=== PATIENT | female | born 1945 | race Caucasian/White ===

== ENCOUNTER 2019-01-22 19:11 | Emergency (ER) | payer MEDICARE, MEDICAID ==
--- NOTE | 2019-01-22 20:47 | RAD ---
Exam: XR Knee Rt 4 View STANDARD HISTORY: Right knee pain after a fall one day ago. COMPARISON: 02/19/2015 FINDINGS: Again noted is tricompartment osteophytosis. There is no joint space narrowing identified. A small amount of fluid is seen in the suprapatellar location likely physiologic in origin. No acute fracture, dislocation, or other acute osseous abnormality is identified. IMPRESSION: 1. Osteoarthritis right knee similar to prior exam. 2. No acute osseous abnormality is identified.
[2019-01-22 20:55] LABS: Mean Corpuscular HGB CONC 34.2 g/dL (32.0-36.0); Mean Corpuscular Hemoglobin 31.3 pg (27.0-31.0); Mean Corpuscular Volume 91.6 fL (78.0-98.0); Mean Platelet Volume 9.4 fL (7.4-10.4); Platelet Count 181 thou/uL (130-400); RBC Distribution Width 11.4 % (11.5-14.5); Red Blood Cell (RBC) Count 4.79 mill/uL (4.20-5.40); White Blood Cell (WBC) Count 5.6 thou/uL (4.8-10.8)
[2019-01-22 21:04] LABS: Band 2 % (5-11); Eosinophils 1 % (0-10); Lymphocytes 51 % (21-51); MDiff Complete? YES; Monocytes 10 % (0-10); Neutrophil 35 % (42-75); Platelet Morphology Comment Appears Adequate; RBC Morphology Normal
[2019-01-22 21:08] LABS: ALT (SGPT) 15 U/L (8-55); AST (SGOT) 24 U/L (5-34); Alkaline Phosphatase 62 U/L (40-150); Anion Gap 12 mmol/L (10-20); BUN (Urea Nitrogen) 18 mg/dL (9.8-20.1); Bilirubin, Total 0.5 mg/dL (0.2-1.2); CK (CPK) 38 U/L (29-168); Calc. Creatinine Clearance 0 mL/min (70-130); Calcium 9.9 mg/dL (7.8-10.44); Carbon Dioxide 29 mmol/L (23-31); Chloride 103 mmol/L (98-107); Estimated GFR-MDRD 48; Globulin 3.1 g/dL (2.4-3.5); Glucose 85 mg/dL (83-110); Lipase 47 U/L (8-78); Potassium 4.2 mmol/L (3.5-5.1); Protein, Total 7.1 g/dL (6.0-8.3); Sodium 140 mmol/L (136-145)
== END 2019-01-22 21:49 | disposition home or self-care (01) ==
LOC: SCSER 19:11
DX: S80.01XA Contusion of right knee, initial encounter (principal); I10 Essential (primary) hypertension; Z79.899 Other long term (current) drug therapy; E78.5 Hyperlipidemia, unspecified; X58.XXXA Exposure to other specified factors, initial encounter
CPT/HCPCS: 80053; 82550; 83690; 84484; 85025; 93005

== ENCOUNTER 2020-09-15 11:33 | Inpatient (IN) | payer MEDICARE, MEDICAID ==
[~2020-09-15 11:33] MED LIST: Iopamidol-370 76% 500 ML 1 ML ONE
[2020-09-15] MEDS ORDERED: Lorazepam 2 MG/ML VIAL ONE ×3 (12:04→17:02)
[2020-09-15 12:07] LABS: Hemoglobin 14.3 g/dL (12.0-16.0); Mean Corpuscular HGB CONC 33.4 g/dL (32.0-36.0); Mean Corpuscular Hemoglobin 34.3 pg (27.0-31.0); Mean Platelet Volume 7.5 fL (7.4-10.4); Platelet Count 203 thou/uL (130-400); RBC Distribution Width 11.5 % (11.5-14.5); Red Blood Cell (RBC) Count 4.17 mill/uL (4.20-5.40); White Blood Cell (WBC) Count 8.4 thou/uL (4.8-10.8)
[2020-09-15 12:25] LABS: Band 1 % (5-11); Lymphocytes 56 % (21-51); MDiff Complete? YES; Monocytes 3 % (0-10); Neutrophil 34 % (42-75); Platelet Morphology Comment Appears Adequate; RBC Morphology Normal; Reactive Lymphocytes 6 % (0-10)
[2020-09-15 13:00] LABS: ALT (SGPT) 14 U/L (8-55); AST (SGOT) 41 U/L (5-34); Albumin 3.7 g/dL (3.4-4.8); Alkaline Phosphatase 65 U/L (40-110); Anion Gap 18 mmol/L (10-20); BUN (Urea Nitrogen) 20 mg/dL (9.8-20.1); Bilirubin, Total 0.4 mg/dL (0.2-1.2); CK (CPK) 27 U/L (29-168); Calc. Creatinine Clearance 0 mL/min (70-130); Calcium 9.9 mg/dL (7.8-10.44); Carbon Dioxide 26 mmol/L (23-31); Chloride 103 mmol/L (98-107); Globulin 3.6 g/dL (2.4-3.5); Glucose 94 mg/dL (83-110); Potassium 4.6 mmol/L (3.5-5.1); Protein, Total 7.3 g/dL (5.8-8.1); Sodium 142 mmol/L (136-145)
[2020-09-15 17:36] LABS: Bacteria/HPF None Seen HPF (None Seen); Bilirubin Negative (Negative); Blood, Urine Negative (Negative); Clarity Clear (Clear); Glucose, Urine (Dipstick) Normal (Negative); Ketone, Urine Negative (Negative); Leukocyte 25 Leu/uL (Negative); Nitrite Negative (Negative); Protein, Urine (Dipstick) Negative (Neg-Trace); RBC/HPF 0-3 HPF (0-3); Specific Gravity, Urine 1.014 (1.002-1.036); Squamous Epithelial None Seen HPF (0-3); Urobilinogen Normal mg/dL (Less than 2)
[2020-09-15 18:09] LABS: Amphetamine Not Detected (NotDetected); Barbiturates Screen Not Detected (NotDetected); Benzodiazepine Screen Not Detected (NotDetected); Cocaine Metabolite Screen Not Detected (NotDetected); Medtox Control Line Valid? VALID (VALID); Medtox Reader # READER 1; Methadone Not Detected (NotDetected); Methamphetamine Not Detected (NotDetected); Opiate Screen Not Detected (NotDetected); Oxycodone Screen Not Detected (NotDetected); Phencyclidine (PCP) Not Detected (NotDetected); THC/Cannabinoid Screen Not Detected (NotDetected); Tricyclic Screen Not Detected (NotDetected)
[2020-09-15 18:24] LABS: Acetaminophen Less than 6.0 mcg/mL (10.0-30.0); Alcohol Less than 10 mg/dL (Less than 10); Magnesium 1.6 mg/dL (1.6-2.6); Salicylate Less than 8.0 mg/dL (15.0-30.0)
[2020-09-15 18:26] LABS: Troponin I 0.031 ng/mL (< 0.028)
[2020-09-15] MEDS ORDERED: Acetaminophen 500 MG TAB ONE (18:33)
[2020-09-15] MEDS ORDERED: Ondansetron ODT 4 MG TAB PO PRN (19:19)
[2020-09-15] MEDS ORDERED: Ondansetron PF 4 MG/2 ML Vial IVP PRN (19:30)
[2020-09-15] MEDS ORDERED: Ondansetron ODT 4 MG TAB SL PRN (19:30)
[2020-09-15] MEDS ORDERED: Acetaminophen 325 MG TAB PO PRN (19:30)
[2020-09-15 19:40] VITALS: BMI 34.3
[2020-09-15] MEDS ORDERED: cefTRIAXone\\ROCEPHIN 1 GM in Sodium Chloride 0.9% 100 ML IVPB SCH (20:00)
[2020-09-15] MEDS ORDERED: Atorvastatin Calcium 10 MG TAB PO SCH (21:00)
[2020-09-15] MEDS ORDERED: FLU VACC QS2020-21(65YR UP)/PF 240 MCG/0.7 ML SYRINGE IM ONE (21:00)
[2020-09-15] MEDS: Famotidine 20 MG TAB PO SCH (21:07)
[2020-09-15 21:30] LABS: Troponin I 0.027 ng/mL (< 0.028)
[2020-09-16] MEDS ORDERED: Magnesium 2 GM/50 ML 2 GM in Premix Bag 1 BAG IVPB SCH ×2 (00:30→14:30)
[2020-09-16 03:25] LABS: SARS-CoV-2 PCR by NAA Not Detected (NotDetected)
[2020-09-16 05:05] LABS: Anion Gap 9 mmol/L (10-20); BUN (Urea Nitrogen) 13 mg/dL (9.8-20.1); Calc. Creatinine Clearance 89 mL/min (70-130); Calcium 7.9 mg/dL (7.8-10.44); Carbon Dioxide 28 mmol/L (23-31); Chloride 107 mmol/L (98-107); Glucose 90 mg/dL (83-110); Potassium 3.7 mmol/L (3.5-5.1); Sodium 140 mmol/L (136-145)
[2020-09-16 05:20] LABS: Band 1 % (5-11); Hemoglobin 11.9 g/dL (12.0-16.0); Hypochromia SLIGHT = 6-15 cells (100X) (0-5/hpf); Lymphocytes 38 % (21-51); MDiff Complete? YES; Mean Corpuscular HGB CONC 33.1 g/dL (32.0-36.0); Mean Corpuscular Hemoglobin 33.6 pg (27.0-31.0); Mean Platelet Volume 7.2 fL (7.4-10.4); Monocytes 6 % (0-10); Neutrophil 40 % (42-75); Platelet Count 166 thou/uL (130-400); Platelet Morphology Comment Appears Adequate; RBC Distribution Width 11.7 % (11.5-14.5); Reactive Lymphocytes 15 % (0-10); Red Blood Cell (RBC) Count 3.55 mill/uL (4.20-5.40)
[2020-09-16] MEDS: Levothyroxine Sodium 25 MCG TAB PO SCH ×2 (06:57→06:58)
[2020-09-16] MEDS: Famotidine 20 MG TAB PO SCH ×2 (08:50→22:15)
[2020-09-16] MEDS: Acetaminophen 325 MG TAB PO PRN (08:54)
[2020-09-16] MEDS ORDERED: Aspirin 81 mg Enteric Coated Tablet PO SCH (09:00)
[2020-09-16] MEDS ORDERED: NIFEdipine XL 30 MG TAB PO SCH (09:00)
[2020-09-16] MEDS ORDERED: Diltiazem 125 MG in Sodium Chloride 0.9% 100 ML IVPB SCH (15:30)
[2020-09-16] MEDS: Atorvastatin Calcium 10 MG TAB PO SCH (22:15)
[2020-09-16] MEDS: Diltiazem HCl SR 60 mg Capsule PO SCH (22:15)
[2020-09-16] MEDS: Enoxaparin Sodium 80 MG/0.8 ML SYRINGE SC SCH (22:15)
[2020-09-17] MEDS: Levothyroxine Sodium 25 MCG TAB PO SCH ×2 (06:43→07:32)
[2020-09-17] MEDS: Enoxaparin Sodium 80 MG/0.8 ML SYRINGE SC SCH ×2 (08:50→20:04)
[2020-09-17] MEDS: Famotidine 20 MG TAB PO SCH ×2 (08:50→20:04)
[2020-09-17] MEDS: Aspirin 81 mg Enteric Coated Tablet PO SCH (08:51)
[2020-09-17] MEDS: Diltiazem HCl SR 60 mg Capsule PO SCH (08:51)
[2020-09-17] MEDS ORDERED: BIOFLAVONOID PO SCH (09:00)
[2020-09-17] MEDS ORDERED: [UNRECOGNIZED DRUG - OTHER] PO SCH (09:00)
[2020-09-17] MEDS ORDERED: ASCORBATE CALCIUM PO SCH (09:00)
[2020-09-17 09:09] LABS: Platelet Count 173 thou/uL (130-400)
[2020-09-17] MEDS: Acetaminophen 325 MG TAB PO PRN (17:22)
[2020-09-17] MEDS: Atorvastatin Calcium 10 MG TAB PO SCH (20:05)
[2020-09-17] MEDS: Diltiazem HCl SR 90 mg Capsule PO SCH (20:05)
[2020-09-18] MEDS: Levothyroxine Sodium 25 MCG TAB PO SCH (05:42)
[2020-09-18] MEDS: Aspirin 81 mg Enteric Coated Tablet PO SCH (08:26)
[2020-09-18] MEDS: Enoxaparin Sodium 80 MG/0.8 ML SYRINGE SC SCH (08:26)
[2020-09-18] MEDS: Diltiazem HCl SR 90 mg Capsule PO SCH (08:26)
[2020-09-18] MEDS: Famotidine 20 MG TAB PO SCH (08:26)
[2020-09-18] MEDS: Acetaminophen 325 MG TAB PO PRN (08:30)
[2020-09-18 11:11] VITALS: BP 153/68; TEMP 98.3
[2020-09-18 11:38] LABS: Anion Gap 12 mmol/L (10-20); BUN (Urea Nitrogen) 13 mg/dL (9.8-20.1); Calc. Creatinine Clearance 68 mL/min (70-130); Calcium 8.3 mg/dL (7.8-10.44); Carbon Dioxide 27 mmol/L (23-31); Chloride 105 mmol/L (98-107); Glucose 116 mg/dL (83-110); Magnesium 2.2 mg/dL (1.6-2.6); Potassium 4.2 mmol/L (3.5-5.1); Sodium 140 mmol/L (136-145)
[2020-09-18] MEDS ORDERED: Apixaban 5 MG TAB PO SCH (21:00)
== END 2020-09-18 14:26 | disposition home or self-care (01) | DRG 310 ==
LOC: ERS 11:33 → 2NO 17:30 → OBSVTOIN 09-16 14:34
PROVIDERS: ADMIT Internal Medicine; ATTEND Internal Medicine
DX: I48.92 Unspecified atrial flutter (principal); Z20.822 Contact with and (suspected) exposure to COVID-19; Z23 Encounter for immunization; F41.9 Anxiety disorder, unspecified; E78.5 Hyperlipidemia, unspecified; I10 Essential (primary) hypertension; E03.9 Hypothyroidism, unspecified; I45.19 Other right bundle-branch block; G80.9 Cerebral palsy, unspecified; G40.909 Epilepsy, unspecified, not intractable, without status epilepticus; F79 Unspecified intellectual disabilities; E78.00 Pure hypercholesterolemia, unspecified; Z88.2 Allergy status to sulfonamides; Z79.899 Other long term (current) drug therapy; Z90.710 Acquired absence of both cervix and uterus; Z90.49 Acquired absence of other specified parts of digestive tract
CPT/HCPCS: 36415; 51701; 70450; 71045; 71275; 80048; 80053; 80164; 80306; 80307; 81003; 81015; 82550; 83605; 83735; 84146; 84443; 84484; 85014; 85018; 85025; 85049; 85379; 87086; 87635; 93005; 93306; 95712; 95819; 95957; 96365; 96367; 96374; 96375; 96376; G0378; J0696; J1650; J2060; J3475; J3490; Q9967; U0003; U0005

== ENCOUNTER 2021-08-12 19:01 | Emergency (ER) | payer MEDICARE, MEDICAID ==
[2021-08-12 19:54] LABS: Hemoglobin 15.7 g/dL (12.0-16.0); Mean Corpuscular HGB CONC 34.6 g/dL (32.0-36.0); Mean Corpuscular Hemoglobin 34.3 pg (27.0-31.0); Mean Corpuscular Volume 99.1 fL (78.0-98.0); Mean Platelet Volume 8.7 fL (7.4-10.4); Platelet Count 178 thou/uL (130-400); RBC Distribution Width 10.9 % (11.5-14.5); Red Blood Cell (RBC) Count 4.57 mill/uL (4.20-5.40); White Blood Cell (WBC) Count 8.1 thou/uL (4.8-10.8)
[2021-08-12 20:18] LABS: Eosinophils 1 % (0-10); Lymphocytes 47 % (21-51); MDiff Complete? YES; Monocytes 10 % (0-10); Neutrophil 41 % (42-75); Platelet Morphology Comment Appears Adequate; RBC Morphology Normal; Reactive Lymphocytes 1 % (0-10)
[2021-08-12 20:24] LABS: ALT (SGPT) 11 U/L (8-55); AST (SGOT) 17 U/L (5-34); Albumin 4.1 g/dL (3.4-4.8); Alkaline Phosphatase 56 U/L (40-110); Anion Gap 14 mmol/L (10-20); BUN (Urea Nitrogen) 28 mg/dL (9.8-20.1); Bilirubin, Total 0.3 mg/dL (0.2-1.2); Calc. Creatinine Clearance 0 mL/min (70-130); Calcium 9.9 mg/dL (7.8-10.44); Carbon Dioxide 30 mmol/L (23-31); Chloride 101 mmol/L (98-107); Globulin 3.3 g/dL (2.4-3.5); Glucose 93 mg/dL (83-110); Lipase 80 U/L (8-78); Potassium 4.5 mmol/L (3.5-5.1); Protein, Total 7.4 g/dL (5.8-8.1); Sodium 140 mmol/L (136-145)
== END 2021-08-12 21:20 | disposition home or self-care (01) ==
LOC: ERS 19:01
DX: R07.9 Chest pain, unspecified (principal); R10.13 Epigastric pain; E78.5 Hyperlipidemia, unspecified; I10 Essential (primary) hypertension; E03.9 Hypothyroidism, unspecified; Z79.01 Long term (current) use of anticoagulants; Z79.899 Other long term (current) drug therapy
CPT/HCPCS: 71045; 80053; 83690; 84484; 85025; 93005; 94760

== ENCOUNTER 2024-01-12 23:25 | Emergency (ER) | payer MEDICARE, MEDICAID, OTHER ==
[2024-01-13] MEDS ORDERED: Ibuprofen 200 MG TAB ONE (00:47)
[2024-01-13] MEDS ORDERED: Acetaminophen 500 MG TAB ONE (00:47)
== END 2024-01-13 02:50 | disposition home or self-care (01) ==
LOC: ERS 23:25
DX: S09.90XA Unspecified injury of head, initial encounter (principal); I10 Essential (primary) hypertension; E03.9 Hypothyroidism, unspecified; W22.8XXA Striking against or struck by other objects, initial encounter; Z79.899 Other long term (current) drug therapy
CPT/HCPCS: 70450

== ENCOUNTER 2025-03-17 09:35 | Inpatient (IN) | payer MEDICARE, MEDICAID ==
[2025-03-17] MEDS ORDERED: Ondansetron PF 4 MG/2 ML Vial ONE (09:43)
[2025-03-17 10:12] LABS: #Basophils 0.05 10x3/uL (0.0-0.2); #Eosinophils 0.03 10x3/uL (0.0-0.7); #Monocytes 1.17 10x3/uL (0.11-0.59); #Neutrophils 6.66 10x3/uL (1.40-6.50); %Basophils 0.5 % (0.0-1.0); %Eosinophils 0.3 % (0.0-10.0); %Lymphocytes 26.9 % (21.0-51.0); %Monocytes 10.7 % (0.0-10.0); %Neutrophils 61.1 % (42.0-75.0); Hematocrit 40.9 % (36.0-47.0); Hemoglobin 13.7 g/dL (12.0-16.0); Mean Corpuscular Hemoglobin 32.0 pg (27.0-31.0); Mean Corpuscular Volume 95.6 fL (78.0-98.0); Platelet Count 173 10x3/uL (130-400); Red Blood Cell (RBC) Count 4.28 mill/uL (4.20-5.40); White Blood Cell (WBC) Count 10.89 10x3/uL (4.8-10.8)
[2025-03-17 10:27] LABS: ALT (SGPT) Less than 7 U/L (Less than 34); AST (SGOT) 16 U/L (11-34); Albumin 3.4 g/dL (3.1-4.5); Alkaline Phosphatase 42 U/L (40-110); Anion Gap 16 mmol/L (10-20); BUN (Urea Nitrogen) 21 mg/dL (9.8-20.1); Bilirubin, Total 0.8 mg/dL (0.3-1.2); Calc. Creatinine Clearance 0 mL/min (70-130); Calcium 10.1 mg/dL (7.8-10.44); Carbon Dioxide 24 mmol/L (23-31); Chloride 103 mmol/L (98-107); Globulin 3.9 g/dL (2.4-3.5); Glucose 81 mg/dL (83-110); Lipase 24 U/L (8-78); Potassium 4.3 mmol/L (3.5-5.1); Sodium 139 mmol/L (136-145)
[2025-03-17 10:31] LABS: Troponin I Less than 0.010 ng/mL (< 0.028)
[2025-03-17] MEDS ORDERED: Iopamidol-370 76% 500 ML MDV (1 ML CHARGE) ONE (11:23)
[2025-03-17 12:00] LABS: Bacteria/HPF None Seen HPF (None Seen); CAUTI Indications for Culture Alt mental st,lethar; Glucose, Urine (Dipstick) Normal (Negative); Leukocyte Negative Leu/uL (Negative); Protein, Urine (Dipstick) Negative (Neg-Trace); RBC/HPF 0-3 HPF (0-3); WBC/HPF 0-3 HPF (0-3)
[2025-03-17 12:01] LABS: Specific Gravity, Urine Greater than 1.050 (1.002-1.036)
[2025-03-17 12:02] LABS: Urine Culture Reflex No No
[2025-03-17] MEDS ORDERED: Guaifenesin DM 100-10/5 ML UDCUP PO PRN (13:33)
[2025-03-17] MEDS ORDERED: Senokot S 8.6-50 MG TAB PO PRN (13:33)
[2025-03-17] MEDS ORDERED: Ondansetron PF 4 MG/2 ML Vial IVP PRN (13:33)
[2025-03-17 15:21] VITALS: BMI 28.0
[2025-03-17] MEDS: cefTRIAXone\\ROCEPHIN 2 GM in Sodium Chloride 0.9% 100 ML IVPB SCH (20:41)
[2025-03-17] MEDS: Acetaminophen 325 MG TAB PO PRN (22:32)
[2025-03-18 06:07] LABS: #Basophils Less than 0.03 10x3/uL (0.0-0.2); #Eosinophils 0.04 10x3/uL (0.0-0.7); #Monocytes 0.80 10x3/uL (0.11-0.59); #Neutrophils 2.94 10x3/uL (1.40-6.50); %Basophils 0.3 % (0.0-1.0); %Eosinophils 0.6 % (0.0-10.0); %Lymphocytes 41.9 % (21.0-51.0); %Monocytes 12.2 % (0.0-10.0); %Neutrophils 44.7 % (42.0-75.0); Hematocrit 36.8 % (36.0-47.0); Hemoglobin 12.0 g/dL (12.0-16.0); Mean Corpuscular Hemoglobin 31.7 pg (27.0-31.0); Mean Corpuscular Volume 97.4 fL (78.0-98.0); Platelet Count 165 10x3/uL (130-400); Red Blood Cell (RBC) Count 3.78 mill/uL (4.20-5.40); White Blood Cell (WBC) Count 6.58 10x3/uL (4.8-10.8)
[2025-03-18 07:09] LABS: Anion Gap 13 mmol/L (10-20); BUN (Urea Nitrogen) 16 mg/dL (9.8-20.1); Calc. Creatinine Clearance 50 mL/min (70-130); Calcium 8.7 mg/dL (7.8-10.44); Carbon Dioxide 24 mmol/L (23-31); Chloride 105 mmol/L (98-107); Glucose 88 mg/dL (83-110); Potassium 3.8 mmol/L (3.5-5.1); Sodium 138 mmol/L (136-145)
[2025-03-18 07:53] VITALS: TEMP 97.4
[2025-03-18 11:44] VITALS: BP 152/65
== END 2025-03-18 14:27 | disposition home or self-care (01) | DRG 392 ==
LOC: ERS 09:35 → ERHOLD 13:26 → T4-A 14:44
PROVIDERS: ADMIT Hospitalist; ATTEND Family Medicine
DX: K57.32 Diverticulitis of large intestine without perforation or abscess without bleeding (principal); F41.9 Anxiety disorder, unspecified; E78.5 Hyperlipidemia, unspecified; I10 Essential (primary) hypertension; E03.9 Hypothyroidism, unspecified; Z91.041 Radiographic dye allergy status; Z88.2 Allergy status to sulfonamides; Z90.49 Acquired absence of other specified parts of digestive tract; Z90.710 Acquired absence of both cervix and uterus; Z79.899 Other long term (current) drug therapy
CPT/HCPCS: 36415; 71275; 74177; 80048; 80053; 81001; 83690; 84484; 85025; 93005; 96365; 96375; J0696; J2405; J2543; J7030; Q9967